=== PATIENT | male | born 1960 | race Caucasian/White ===

== ENCOUNTER 2018-08-11 09:42 | Emergency (ER) | payer SELFPAY ==
[2018-08-11] MEDS ORDERED: NS 1,000 ML IV ONE (10:31)
--- NOTE | 2018-08-11 10:31 | EDPHY ---
H & P Stated Complaint: High HR Time Seen by Provider: 08/11/18 10:31 HPI/ROS: CHIEF COMPLAINT: Palpitations HISTORY OF PRESENT ILLNESS: The patient presents the ED after he developed palpitations earlier today. The patient does have a history of chronic anxiety and takes lorazepam and atenolol for this condition. The patient was checking his blood pressure today when he noted an irregular heart rate. He was unable to actually count his heart rate secondary to the speeding irregularity. This prompted his visit to the emergency department. The patient denies any fever, cough or congestion. He denies pleuritic chest pain. He denies any asymmetric calf pain or swelling. The patient denies significant alcohol consumption. The patient denies acute complaints currently. REVIEW OF SYSTEMS: A comprehensive 10 point review of systems is otherwise negative aside from elements mentioned in the history of present illness. Source: Patient - Personal History Current Tetanus/Diphtheria Vaccine: Yes - Medical/Surgical History Hx Asthma: No Hx Chronic Respiratory Disease: No Hx Diabetes: No Hx Cardiac Disease: Yes Hx Renal Disease: No Hx Cirrhosis: No Hx Alcoholism: No Other PMH: HTN, anxiety - Social History Smoking Status: Never smoked - Physical Exam Exam: General Appearance: Alert, no distress Eyes: Pupils equal and round no pallor or injection ENT, Mouth: Mucous membranes moist Respiratory: There are no retractions, lungs are clear to auscultation Cardiovascular: Regular rate and rhythm Gastrointestinal: Abdomen is soft and nontender, no masses, bowel sounds normal Neurological: A&O, normal motor function, normal sensory exam, normal cranial nerves Skin: Warm and dry, no rashes Musculoskeletal: Neck is supple nontender Extremities: symmetrical, full range of motion Constitutional: Initial Vital Signs Temperature (C) 36.7 C 08/11/18 10:10 Heart Rate 56 L 08/11/18 10:10 Respiratory Rate 16 08/11/18 10:10 Blood Pressure 93/78 L 08/11/18 10:10 O2 Sat (%) 97 08/11/18 10:10 O2 Delivery Mode Room Air Allergies/Adverse Reactions: Opioids - Morphine Analogues Allergy (Verified 08/11/18 10:15) Home Medications: Medication Instructions Recorded Atenolol 08/11/18 LORAZEPAM 08/11/18 Medical Decision Making - Diagnostics EKG Interpretation: EKG: Complete interpretation has been separately recorded in the [employer] archive. Summary impression: Atrial fibrillation, rate 146, nonspecific ST T wave changes noted. Imaging Results: Imaging Impressions Chest X-Ray 08/11/18 10:31 Impression: Clear lungs. Negative portable chest. ED Course/Re-evaluation: The patient presented to the ED with atrial fibrillation with rapid ventricular response which resolved spontaneously after his IV catheter was placed. The patient is now entirely asymptomatic. The patient's workup is unrevealing aside from a slightly elevated D-dimer is 0.62. I did tell the patient had a low clinical suspicion for pulmonary embolism as he is now completely asymptomatic now that he is converted. The patient was offered a CT scan of the chest however he is declined that study secondary to concerns about cost as the patient is currently uninsured. The patient will follow up with his regular primary care provider Dr. Choe. He is also given the number of our groutman to schedule a follow-up visit regarding his atrial fibrillation. The patient will be discharged home with instructions to return to the ED for any dyspnea, pleuritic chest pain, recurrent arrhythmia or other concerns. Differential Diagnosis: Differential diagnosis considered includes atrial fibrillation, dehydration, arrhythmia, metabolic abnormality, anxiety - Data Points Laboratory Results: Laboratory Results 08/11/18 10:29 08/11/18 10:29 08/11/18 08/11/18 08/11/18 10:34 10:29 10:29 WBC RBC Hgb Hct MCV MCH MCHC RDW Plt Count MPV Neut % (Auto) Lymph % (Auto) [place] % (Auto) Eos % (Auto) Baso % (Auto) Nucleat RBC Rel Count Absolute Neuts (auto) Absolute Lymphs (auto) Absolute Monos (auto) Absolute Eos (auto) Absolute Basos (auto) Absolute Nucleated RBC Immature Gran % Immature Gran # D-Dimer 0.62 ug/mLFEU H ug/mLFEU (0.00-0.50) Sodium 140 mEq/L mEq/L (135-145) Potassium 3.9 mEq/L mEq/L (3.3-5.0) Chloride 103 mEq/L mEq/L (97-110) Carbon Dioxide 29 mEq/l mEq/l (22-31) Anion Gap 8 mEq/L mEq/L (8-16) BUN 25 mg/dL H mg/dL (7-23) Creatinine 1.1 mg/dL mg/dL (0.7-1.3) Estimated GFR > 60 Glucose 114 mg/dL H mg/dL (70-100) Calcium 9.4 mg/dL mg/dL (8.5-10.4) POC Troponin I 0.01 ng/mL ng/mL (0.00-0.08) 08/11/18 10:29 WBC 5.60 10^3/uL 10^3/uL (3.80-9.50) RBC 5.48 10^6/uL 10^6/uL (4.40-6.38) Hgb 17.4 g/dL g/dL (13.7-17.5) Hct 48.9 % % (40.0-51.0) MCV 89.2 fL fL (81.5-99.8) MCH 31.8 pg pg (27.9-34.1) MCHC 35.6 g/dL g/dL (32.4-36.7) RDW 13.0 % % (11.5-15.2) Plt Count 185 10^3/uL 10^3/uL (150-400) MPV 10.4 fL fL (8.7-11.7) Neut % (Auto) 53.3 % % (39.3-74.2) Lymph % (Auto) 31.3 % % (15.0-45.0) [place] % (Auto) 11.1 % % (4.5-13.0) Eos % (Auto) 3.2 % % (0.6-7.6) Baso % (Auto) 0.9 % % (0.3-1.7) Nucleat RBC Rel Count 0.0 % % (0.0-0.2) Absolute Neuts (auto) 2.99 10^3/uL 10^3/uL (1.70-6.50) Absolute Lymphs (auto) 1.75 10^3/uL 10^3/uL (1.00-3.00) Absolute Monos (auto) 0.62 10^3/uL 10^3/uL (0.30-0.80) Absolute Eos (auto) 0.18 10^3/uL 10^3/uL (0.03-0.40) Absolute Basos (auto) 0.05 10^3/uL 10^3/uL (0.02-0.10) Absolute Nucleated RBC 0.00 10^3/uL 10^3/uL (0-0.01) Immature Gran % 0.2 % % (0.0-1.1) Immature Gran # 0.01 10^3/uL 10^3/uL (0.00-0.10) D-Dimer Sodium Potassium Chloride Carbon Dioxide Anion Gap BUN Creatinine Estimated GFR Glucose Calcium POC Troponin I Medications Given: Discontinued Medications Sodium Chloride (Ns) 1,000 mls @ 0 mls/hr IV EDNOW ONE; Wide Open PRN Reason: Protocol Stop: 08/11/18 10:32 Last Admin: 08/11/18 10:52 Dose: 1,000 mls Point of Care Test Results: Chemistry 08/11/18 10:34 POC Troponin I 0.01 ng/mL ng/mL (0.00-0.08) Departure - Departure Disposition: Home, Routine, Self-Care Clinical Impression: Atrial fibrillation Condition: Good Instructions: A-fib (Atrial Fibrillation) (ED) Additional Instructions: 1. Please schedule a follow-up appointment with the groutman you have been referred to for further workup of your new onset atrial fibrillation. 2. You have been offered CT scan of the chest in decline for evaluation of possible blood clot. Please return to the ED for the development of any sharp inspiratory chest pain, shortness of breath or other concerns. 3. Please schedule a follow-up appointment with Dr. Choe. 4. Please try and increase your fluid intake as mild dehydration may have contributed to your symptoms today. Referrals: Carlyle Choe MD [Primary Care Provider] - As per Instructions Abisai Kinsye MD [Medical Doctor] - As per Instructions
[2018-08-11 10:44] LABS: PLATELET COUNT 185 10^3/uL (150-400)
[2018-08-11] MEDS ORDERED: IOPAMIDOL (ISOVUE 370) 100 ML BTL IV ONE (11:59)
[2018-08-11 12:25] VITALS: BP 111/68
--- NOTE | 2018-08-11 13:44 | CPEKG ---
Test Reason : OPEN Blood Pressure : / mmHG Vent. Rate : 146 BPM Atrial Rate : 161 BPM P-R Int : 050 ms QRS Dur : 087 ms QT Int : 294 ms P-R-T Axes : 000 026 046 degrees QTc Int : 459 ms Atrial fibrillation Minimal ST depression, anterolateral leads Confirmed by Kenn Quiros ([id number]) on 08/11/2018 1:43:15 PM Referred By: Confirmed By:Kenn Quiros
--- NOTE | 2018-08-11 13:44 | CPEKG ---
Test Reason : OPEN Blood Pressure : / mmHG Vent. Rate : 058 BPM Atrial Rate : 059 BPM P-R Int : 163 ms QRS Dur : 090 ms QT Int : 401 ms P-R-T Axes : 021 027 040 degrees QTc Int : 394 ms Sinus rhythm Confirmed by Kenn Quiros ([id number]) on 08/11/2018 1:43:19 PM Referred By: Confirmed By:Kenn Quiros
== END 2018-08-11 12:24 | disposition home or self-care (01) ==
DX: I48.91 Unspecified atrial fibrillation (principal); E86.9 Volume depletion, unspecified; F41.9 Anxiety disorder, unspecified; I10 Essential (primary) hypertension
CPT/HCPCS: 84484-PO; Q9967

== ENCOUNTER 2018-08-25 02:13 | Observation (INO) | payer SELFPAY ==
--- NOTE | 2018-08-25 02:19 | EDPHY ---
H & P Stated Complaint: Afib and left arm numbness Time Seen by Provider: 08/25/18 02:19 HPI/ROS: HPI CHIEF COMPLAINT: Left arm tightness, possible AFib HISTORY OF PRESENT ILLNESS: A 58-year-old male, history of hypertension, presents emergency room stating that he woke up this evening and took his pulse knows that was rather fast. Irregular. Also developed some left-sided tightness in his arm and possibly in his chest. No pleuritic pain. Patient states that he was seen earlier in the month for possible AFib but converted. He did follow back up with his primary care doctor he is taking aspirin daily. Denies any cardiac history. Past Medical History: Hypertension Past Surgical History: Femur fracture. Social History: Denies drugs alcohol tobacco. Family History: Noncontributory ROS REVIEW OF SYSTEMS: 10 Systems were reviewed and negative with the exception of the elements mentioned in the history of present illness. Exam Constitutional nontoxic triage nursing summary reviewed, vital signs reviewed, awake/alert. Heart rate noted be elevated Eyes normal conjunctivae and sclera, EOMI, PERRLA. HENT normal inspection, atraumatic, moist mucus membranes, no epistaxis, neck supple/ no meningismus, no raccoon eyes. Respiratory clear to auscultation bilaterally, normal breath sounds, no respiratory distress, no wheezing. Cardiovascular irregular, irregular rhythm, tachycardic no murmur, no edema, distal pulses normal. Gastrointestinal soft, non-tender, no rebound, no guarding, normal bowel sounds, no distension, no pulsatile mass. Genitourinary no CVA tenderness. Musculoskeletal no midline vertebral tenderness, full range of motion, no calf swelling, no tenderness of extremities, no meningismus, good pulses, neurovascularly intact. Skin pink, warm, & dry, no rash, skin atraumatic. Neurologic awake, alert and oriented x 3, AAOx3, moves all 4 extremities equally, motor intact, sensory intact, CN II-XII intact, normal cerebellar, normal vision, normal speech. Psychiatric normal mood/affect. Heme/Lymph/Immune no lymphadenopathy. Differential diagnosis includes but is not limited to: ACS, atypical chest pain , pneumothorax, pneumonia, pulmonary embolism, aortic dissection, congestive heart failure, tumor, musculoskeletal pain, esophageal pain, GERD, peptic ulcer disease, pancreatitis Medical Decision Making: IV establishment with IV fluid bolus, full media monitor, EKG, troponin, electrolytes, rule out acute coronary syndrome. Re-evaluation: EKG interpretation by me on record in [employer] system. Impression time of EKG 2:29 a.m., AFib with RVR rate of 126 without any signs of acute ischemia. However slight depression specifically in lead V4 V5 V6. No ST elevation. EKG interpretation by me on record in [employer] system. Impression this is a repeat EKG status post 10 mg IV diltiazem. Time of EKG 3:23 a.m., AFib rate of 102 no acute ischemic change. Chest x-ray reviewed negative for acute cardiopulmonary disease. Given the patient's ongoing AFib, and earlier left-sided chest and arm discomfort patient not on anticoagulation to be admitted the hospital for further evaluation of this AFib with RVR with chest pressure. Source: Patient - Personal History Current Tetanus/Diphtheria Vaccine: Yes Current Tetanus Diphtheria and Acellular Pertussis (TDAP): Yes - Medical/Surgical History Hx Asthma: No Hx Chronic Respiratory Disease: No Hx Diabetes: No Hx Cardiac Disease: Yes Hx Renal Disease: No Hx Cirrhosis: No Hx Alcoholism: No Other PMH: HTN, anxiety, afib - Social History Smoking Status: Never smoked Constitutional: Initial Vital Signs Temperature (C) 36.3 C 08/25/18 02:14 Heart Rate 119 H 08/25/18 02:14 Respiratory Rate 18 08/25/18 02:14 Blood Pressure 123/97 H 08/25/18 02:14 O2 Sat (%) 96 08/25/18 02:14 O2 Delivery Mode Room Air Allergies/Adverse Reactions: Opioids - Morphine Analogues Allergy (Verified 08/25/18 02:17) Home Medications: Medication Instructions Recorded Atenolol 08/11/18 LORAZEPAM 08/11/18 Medical Decision Making - Diagnostics Imaging Results: Imaging Impressions Chest X-Ray 08/25/18 02:27 Impression: 1. No acute pulmonary disease. 2. No focal pneumonia. - Data Points Laboratory Results: Laboratory Results 08/25/18 02:30 08/25/18 02:30 08/25/18 08/25/18 08/25/18 02:36 02:30 02:30 WBC RBC Hgb Hct MCV MCH MCHC RDW Plt Count MPV Neut % (Auto) Lymph % (Auto) [place] % (Auto) Eos % (Auto) Baso % (Auto) Nucleat RBC Rel Count Absolute Neuts (auto) Absolute Lymphs (auto) Absolute Monos (auto) Absolute Eos (auto) Absolute Basos (auto) Absolute Nucleated RBC Immature Gran % Immature Gran # PT Pending INR Pending APTT Pending Sodium 138 mEq/L mEq/L (135-145) Potassium 4.0 mEq/L mEq/L (3.3-5.0) Chloride 102 mEq/L mEq/L (97-110) Carbon Dioxide 26 mEq/l mEq/l (22-31) Anion Gap 10 mEq/L mEq/L (6-14) BUN 31 mg/dL H mg/dL (7-23) Creatinine 1.1 mg/dL mg/dL (0.7-1.3) Estimated GFR > 60 Glucose 100 mg/dL mg/dL (70-100) Calcium 9.4 mg/dL mg/dL (8.5-10.4) Magnesium 2.1 mg/dL mg/dL (1.6-2.3) Total Bilirubin 0.6 mg/dL mg/dL (0.1-1.4) Conjugated Bilirubin 0.2 mg/dL mg/dL (0.0-0.5) Unconjugated Bilirubin 0.4 mg/dL mg/dL (0.0-1.1) AST 28 IU/L IU/L (17-59) ALT 27 IU/L IU/L (21-72) Alkaline Phosphatase 56 IU/L IU/L (38-126) POC Troponin I 0.00 ng/mL ng/mL (0.00-0.08) NT-Pro-B Natriuret Pep 164 pg/mL H pg/mL (0-125) Total Protein 6.8 g/dL g/dL (6.3-8.2) Albumin 4.2 g/dL g/dL (3.5-5.0) 08/25/18 02:30 WBC 6.31 10^3/uL 10^3/uL (3.80-9.50) RBC 5.06 10^6/uL 10^6/uL (4.40-6.38) Hgb 15.7 g/dL g/dL (13.7-17.5) Hct 45.6 % % (40.0-51.0) MCV 90.1 fL fL (81.5-99.8) MCH 31.0 pg pg (27.9-34.1) MCHC 34.4 g/dL g/dL (32.4-36.7) RDW 13.0 % % (11.5-15.2) Plt Count 150 10^3/uL 10^3/uL (150-400) MPV 10.9 fL fL (8.7-11.7) Neut % (Auto) 53.3 % % (39.3-74.2) Lymph % (Auto) 32.3 % % (15.0-45.0) [place] % (Auto) 10.3 % % (4.5-13.0) Eos % (Auto) 3.2 % % (0.6-7.6) Baso % (Auto) 0.6 % % (0.3-1.7) Nucleat RBC Rel Count 0.0 % % (0.0-0.2) Absolute Neuts (auto) 3.36 10^3/uL 10^3/uL (1.70-6.50) Absolute Lymphs (auto) 2.04 10^3/uL 10^3/uL (1.00-3.00) Absolute Monos (auto) 0.65 10^3/uL 10^3/uL (0.30-0.80) Absolute Eos (auto) 0.20 10^3/uL 10^3/uL (0.03-0.40) Absolute Basos (auto) 0.04 10^3/uL 10^3/uL (0.02-0.10) Absolute Nucleated RBC 0.00 10^3/uL 10^3/uL (0-0.01) Immature Gran % 0.3 % % (0.0-1.1) Immature Gran # 0.02 10^3/uL 10^3/uL (0.00-0.10) PT INR APTT Sodium Potassium Chloride Carbon Dioxide Anion Gap BUN Creatinine Estimated GFR Glucose Calcium Magnesium Total Bilirubin Conjugated Bilirubin Unconjugated Bilirubin AST ALT Alkaline Phosphatase POC Troponin I NT-Pro-B Natriuret Pep Total Protein Albumin Medications Given: Discontinued Medications Diltiazem HCl (Cardizem 25 Mg/5 Ml Vial) 10 mg IVP EDNOW ONE Stop: 08/25/18 02:31 Last Admin: 08/25/18 02:31 Dose: 10 mg Sodium Chloride (Ns) 1,000 mls @ 0 mls/hr IV EDNOW ONE; Wide Open PRN Reason: Protocol Stop: 08/25/18 02:28 Last Admin: 08/25/18 02:30 Dose: 1,000 mls Point of Care Test Results: Chemistry 08/25/18 02:36 POC Troponin I 0.00 ng/mL ng/mL (0.00-0.08) Departure - Departure Disposition: [facility] Inpatient Acute Clinical Impression: Chest pressure, Atrial fibrillation Condition: Fair Referrals: Carlyle Choe MD [Primary Care Provider] - As per Instructions
[2018-08-25] MEDS ORDERED: NS 1,000 ML IV ONE (02:27)
[2018-08-25] MEDS ORDERED: DILTIAZEM 25 MG/5 ML VIAL IVP ONE (02:30)
[2018-08-25 02:44] LABS: PLATELET COUNT 150 10^3/uL (150-400)
[2018-08-25] MEDS ORDERED: DILTIAZEM 125 MG in D5W 125 ML IV ONE (03:29)
[2018-08-25 03:34] LABS: INR 0.98 (0.83-1.16); PROTIME(PATIENT) 13.2 SEC (12.0-15.0)
[2018-08-25] MEDS ORDERED: ACETAMINOPHEN 325 MG TAB PO PRN (03:41)
[2018-08-25] MEDS ORDERED: ONDANSETRON 4 MG/2 ML VIAL IVP PRN (03:41)
[2018-08-25] MEDS ORDERED: ONDANSETRON DISINTEGRATING 4 MG TAB PO PRN (03:41)
[2018-08-25] MEDS ORDERED: DILTIAZEM 125 MG in D5W 125 ML IV SCH (03:45)
--- NOTE | 2018-08-25 04:13 | PDGENHP ---
History and Physical - Chief Complaint Palpitations - History of Present Illness 58 yo M w/ hx of HTN and anxiety presents with palpitations. The patient got up to go to the bathroom tonight and noted palpitations. He could feel clear irregularity in his heart rate. He check his pulse and it was high so he came to the ED. Upon arrival he was noted to be in AF w/ RVR with HR's in the 130's. He was placed on a diltiazem drip and he currently remains in AF with HR's in the 90-120 range. He denies symptoms aside from anxiety, which is a chronic problem for him. Of note, he came to the ED on August 11 with similar symptoms. He was found to have atrial fibrillation but converted back to NSR quickly and was discharged home for outpatient work-up. A 24 Holter monitor on 08/13 revealed only occasional PVCs. He denies history of CHF, vascular disease, DM, or stroke. Case discussed with Dr. Marion; records reviewed in EMR. History Information - Allergies/Home Medication List Allergies/Adverse Reactions: Opioids - Morphine Analogues Allergy (Verified 08/25/18 02:17) Home Medications: Atenolol 08/11/18 [Last Taken Unknown] LORAZEPAM 08/11/18 [Last Taken Unknown] I have personally reviewed and updated: family history, medical history - Past Medical History hypertension Additional medical history: Anxiety - Surgical History Reports: no pertinent surgical hx - Family History Positive for: cancer - Social History Smoking Status: Never smoked Review of Systems Review of Systems: ROS: 10pt was reviewed & negative except for what was stated in HPI & below Physical Exam Physical Exam: Temp Pulse Resp BP Pulse Ox 36.5 C 88 16 100/83 H 94 08/25/18 03:53 08/25/18 03:53 08/25/18 03:53 08/25/18 03:53 08/25/18 03:53 Constitutional: appears nourished, not in pain Eyes: PERRL, EOMI Ears, Nose, Mouth, Throat: moist mucous membranes, no oral mucosal ulcers Cardiovascular: irregularly irregular, tachycardia Respiratory: no respiratory distress, clear to auscultation Gastrointestinal: normoactive bowel sounds, soft, non-tender abdomen Skin: warm, normal color Musculoskeletal: full muscle strength, no muscle tenderness Neurologic: AAOx3, CN II-XII Intact Psychiatric: interacting appropriately, not anxious Lab Data & Imaging Review 08/25/18 02:30 08/25/18 02:30 WBC 6.31 10^3/uL (3.80-9.50) 08/25/18 02:30 RBC 5.06 10^6/uL (4.40-6.38) 08/25/18 02:30 Hgb 15.7 g/dL (13.7-17.5) 08/25/18 02:30 Hct 45.6 % (40.0-51.0) 08/25/18 02:30 MCV 90.1 fL (81.5-99.8) 08/25/18 02:30 MCH 31.0 pg (27.9-34.1) 08/25/18 02:30 MCHC 34.4 g/dL (32.4-36.7) 08/25/18 02:30 RDW 13.0 % (11.5-15.2) 08/25/18 02:30 Plt Count 150 10^3/uL (150-400) 08/25/18 02:30 MPV 10.9 fL (8.7-11.7) 08/25/18 02:30 Neut % (Auto) 53.3 % (39.3-74.2) 08/25/18 02:30 Lymph % (Auto) 32.3 % (15.0-45.0) 08/25/18 02:30 [place] % (Auto) 10.3 % (4.5-13.0) 08/25/18 02:30 Eos % (Auto) 3.2 % (0.6-7.6) 08/25/18 02:30 Baso % (Auto) 0.6 % (0.3-1.7) 08/25/18 02:30 Nucleat RBC Rel Count 0.0 % (0.0-0.2) 08/25/18 02:30 Absolute Neuts (auto) 3.36 10^3/uL (1.70-6.50) 08/25/18 02:30 Absolute Lymphs (auto) 2.04 10^3/uL (1.00-3.00) 08/25/18 02:30 Absolute Monos (auto) 0.65 10^3/uL (0.30-0.80) 08/25/18 02:30 Absolute Eos (auto) 0.20 10^3/uL (0.03-0.40) 08/25/18 02:30 Absolute Basos (auto) 0.04 10^3/uL (0.02-0.10) 08/25/18 02:30 Absolute Nucleated RBC 0.00 10^3/uL (0-0.01) 08/25/18 02:30 Immature Gran % 0.3 % (0.0-1.1) 08/25/18 02:30 Immature Gran # 0.02 10^3/uL (0.00-0.10) 08/25/18 02:30 PT 13.2 SEC (12.0-15.0) 08/25/18 02:30 INR 0.98 (0.83-1.16) 08/25/18 02:30 APTT 29.2 SEC (23.0-38.0) 08/25/18 02:30 Sodium 138 mEq/L (135-145) 08/25/18 02:30 Potassium 4.0 mEq/L (3.3-5.0) 08/25/18 02:30 Chloride 102 mEq/L (97-110) 08/25/18 02:30 Carbon Dioxide 26 mEq/l (22-31) 08/25/18 02:30 Anion Gap 10 mEq/L (6-14) 08/25/18 02:30 BUN 31 mg/dL (7-23) H 08/25/18 02:30 Creatinine 1.1 mg/dL (0.7-1.3) 08/25/18 02:30 Estimated GFR > 60 08/25/18 02:30 Glucose 100 mg/dL (70-100) 08/25/18 02:30 Calcium 9.4 mg/dL (8.5-10.4) 08/25/18 02:30 Magnesium 2.1 mg/dL (1.6-2.3) 08/25/18 02:30 Total Bilirubin 0.6 mg/dL (0.1-1.4) 08/25/18 02:30 Conjugated Bilirubin 0.2 mg/dL (0.0-0.5) 08/25/18 02:30 Unconjugated Bilirubin 0.4 mg/dL (0.0-1.1) 08/25/18 02:30 AST 28 IU/L (17-59) 08/25/18 02:30 ALT 27 IU/L (21-72) 08/25/18 02:30 Alkaline Phosphatase 56 IU/L (38-126) 08/25/18 02:30 POC Troponin I 0.00 ng/mL (0.00-0.08) 08/25/18 02:36 NT-Pro-B Natriuret Pep 164 pg/mL (0-125) H 08/25/18 02:30 Total Protein 6.8 g/dL (6.3-8.2) 08/25/18 02:30 Albumin 4.2 g/dL (3.5-5.0) 08/25/18 02:30 Imaging Review: Imaging Impressions Chest X-Ray 08/25/18 02:27 Impression: 1. No acute pulmonary disease. 2. No focal pneumonia. Visualized and Interpreted EKG results: Yes EKG Interpretation: Positive for: other (Atrial fibrillation) Assessment & Plan Assessment: 58 yo M w/ HTN and anxiety presents with palpitations and found to have atrial fibrillation. Plan: 1. AF w/ RVR - HR 130's on admission, now improved on diltiazem drip. Patient was also noted to be in atrial fibrillation on 08/11 during ED visit but converted to NSR and was discharged for outpatient work-up. [id number] score of only 1 for HTN. - Admit to PCU for observation - Continue diltiazem gtt overnight - Obtain TTE, check TSH - Will consult cardiology to consider next steps - Indicated for ASA prior to discharge noting low [id number] 2. HTN - On atenolol as outpatient 3. Anxiety - He has been trying to taper his lorazepam as of late. Diet - NPO pending cardiology evaluation Code - Full Ppx - LMWH Dispo - Admit under observation status
[2018-08-25] MEDS ORDERED: ENOXAPARIN 40 MG/0.4 ML SYR SC SCH (09:00)
--- NOTE | 2018-08-25 10:29 | PDCARCONS ---
Cardiology Consult Reason for Consult: Newly noted atrial fibrillation Chief Complaint: Palpitations Requesting Physician: Hospitalist Team History of Present Illness: Patient is a 58 y/o male with history of HTN (currently on beta blockers in the outpatient setting), and moderate anxiety, but no HLP, CAD, or DM, who presented to [facility] with complaints of palpitations. Patient noted accelerated heart rates as well as irregularity to heart rhythm on the night prior to admission. Given these findings, he opted to proceed to the ER for an evaluation. Telemetry in the ER with heart rates to 130 bpm and clear irregularity consistent with atrial fibrillation. Diltiazem was started in the ER, and the patient was transferred to the tele floor. In early August, the patient had similar symptoms, and in the ER was noted to have atrial fibrillation at that time. Spontaneous conversion back to normal sinus rhythm was appreciated. Outpatient testing (24 hour holter) without further arrhythmias noted. Patient feels that this cycle has been going on for some time. There is a moderate degree of anxiety (for which he does take lorazepam). Snoring is noted from time to time (uncertain on the degree, but sleep is note terrific). No cardiovascular complaints of chest pains or pressure. No PND or orthopnea. Compliance on PCP prescribed atenolol has been good (patient takes this therapy at 20:00 nightly after an alarm to remind him). Exercise has increased somewhat after a relatively quiescent period without exercise, and has been tolerated. PCP with thyroid panel recently, but he had not heart back with the results. Remainder of the 12 point review of systems was unremarkable. History Information - Allergies/Home Medication List Allergies/Adverse Reactions: Opioids - Morphine Analogues Allergy (Verified 08/25/18 02:17) Home Medications: Atenolol [Tenormin 50 mg (*)] 50 mg PO DAILY 08/11/18 [Last Taken 08/24/18] LORazepam [Ativan (*)] 1 mg PO TID PRN 08/11/18 [Last Taken Unknown] I have personally reviewed and updated: family history, medical history, social history, surgical history Past Medical History: - Past Medical History hypertension - Surgical History Reports: no pertinent surgical hx - Family History Positive for: CAD - Social History Smoking Status: Never smoked Alcohol Use: Rarely Drug Use: None Cardiac History - Cardiac History Cardiac Risk Factors: male Timing/Duration: Weeks Severity: mild Severity Scale: 4 Location: substernal Activities at Onset: emotional stress Modifying Factors: improves with: breathing, rest Associated Symptoms: denies symptoms Age in Years: < 65 Sex: Male Congestive Heart Failure History: No Hypertension History: Yes Stroke/TIA/Thromboembolism History: No Vascular Disease History: No Diabetes Mellitus: No [id number] Score: 1 Physical Exam Physical Exam: Temp Pulse Resp BP Pulse Ox 36.8 C 108 H 15 129/93 H 92 08/25/18 08:00 08/25/18 08:00 08/25/18 08:00 08/25/18 08:00 08/25/18 08:00 Constitutional: no apparent distress Eyes: PERRL Ears, Nose, Mouth, Throat: moist mucous membranes, hearing normal, ears appear normal Cardiovascular: irregularly irregular, pulses symmetric bilaterally, No JVD, No edema Peripheral Pulses: 2+: dorsalis-pedis (R), dorsalis-pedis (L) Respiratory: no respiratory distress, no rales or rhonchi, clear to auscultation Gastrointestinal: normoactive bowel sounds Skin: warm, normal color Musculoskeletal: full muscle strength, normal joint ROM Neurologic: AAOx3, sensation intact bilaterally, CN II-XII Intact Psychiatric: interacting appropriately, anxious Lab and Imaging 08/25/18 02:30 08/25/18 02:30 WBC 6.31 10^3/uL (3.80-9.50) 08/25/18 02:30 RBC 5.06 10^6/uL (4.40-6.38) 08/25/18 02:30 Hgb 15.7 g/dL (13.7-17.5) 08/25/18 02:30 Hct 45.6 % (40.0-51.0) 08/25/18 02:30 MCV 90.1 fL (81.5-99.8) 08/25/18 02:30 MCH 31.0 pg (27.9-34.1) 08/25/18 02:30 MCHC 34.4 g/dL (32.4-36.7) 08/25/18 02:30 RDW 13.0 % (11.5-15.2) 08/25/18 02:30 Plt Count 150 10^3/uL (150-400) 08/25/18 02:30 MPV 10.9 fL (8.7-11.7) 08/25/18 02:30 Neut % (Auto) 53.3 % (39.3-74.2) 08/25/18 02:30 Lymph % (Auto) 32.3 % (15.0-45.0) 08/25/18 02:30 [place] % (Auto) 10.3 % (4.5-13.0) 08/25/18 02:30 Eos % (Auto) 3.2 % (0.6-7.6) 08/25/18 02:30 Baso % (Auto) 0.6 % (0.3-1.7) 08/25/18 02:30 Nucleat RBC Rel Count 0.0 % (0.0-0.2) 08/25/18 02:30 Absolute Neuts (auto) 3.36 10^3/uL (1.70-6.50) 08/25/18 02:30 Absolute Lymphs (auto) 2.04 10^3/uL (1.00-3.00) 08/25/18 02:30 Absolute Monos (auto) 0.65 10^3/uL (0.30-0.80) 08/25/18 02:30 Absolute Eos (auto) 0.20 10^3/uL (0.03-0.40) 08/25/18 02:30 Absolute Basos (auto) 0.04 10^3/uL (0.02-0.10) 08/25/18 02:30 Absolute Nucleated RBC 0.00 10^3/uL (0-0.01) 08/25/18 02:30 Immature Gran % 0.3 % (0.0-1.1) 08/25/18 02:30 Immature Gran # 0.02 10^3/uL (0.00-0.10) 08/25/18 02:30 PT 13.2 SEC (12.0-15.0) 08/25/18 02:30 INR 0.98 (0.83-1.16) 08/25/18 02:30 APTT 29.2 SEC (23.0-38.0) 08/25/18 02:30 Sodium 138 mEq/L (135-145) 08/25/18 02:30 Potassium 4.0 mEq/L (3.3-5.0) 08/25/18 02:30 Chloride 102 mEq/L (97-110) 08/25/18 02:30 Carbon Dioxide 26 mEq/l (22-31) 08/25/18 02:30 Anion Gap 10 mEq/L (6-14) 08/25/18 02:30 BUN 31 mg/dL (7-23) H 08/25/18 02:30 Creatinine 1.1 mg/dL (0.7-1.3) 08/25/18 02:30 Estimated GFR > 60 08/25/18 02:30 Glucose 100 mg/dL (70-100) 08/25/18 02:30 Calcium 9.4 mg/dL (8.5-10.4) 08/25/18 02:30 Magnesium 2.1 mg/dL (1.6-2.3) 08/25/18 02:30 Total Bilirubin 0.6 mg/dL (0.1-1.4) 08/25/18 02:30 Conjugated Bilirubin 0.2 mg/dL (0.0-0.5) 08/25/18 02:30 Unconjugated Bilirubin 0.4 mg/dL (0.0-1.1) 08/25/18 02:30 AST 28 IU/L (17-59) 08/25/18 02:30 ALT 27 IU/L (21-72) 08/25/18 02:30 Alkaline Phosphatase 56 IU/L (38-126) 08/25/18 02:30 POC Troponin I 0.00 ng/mL (0.00-0.08) 08/25/18 02:36 NT-Pro-B Natriuret Pep 164 pg/mL (0-125) H 08/25/18 02:30 Total Protein 6.8 g/dL (6.3-8.2) 08/25/18 02:30 Albumin 4.2 g/dL (3.5-5.0) 08/25/18 02:30 TSH 6.130 uIU/mL (0.465-4.680) H 08/25/18 02:30 Visualized and Interpreted Chest x-ray results: Yes Chest X-ray Interpretation: no infiltrate, normal Visualized and Interpreted EKG results: Yes EKG Interpretation: Positive for: other (atrial fibrillation) Telemetry: Ongoing atrial fibrillation Echocardiogram: Pending... A/P Assessment: Patient is a 58 y/o male with history of HTN (not too elevated from the reports of the patient, with outpatient pressures of 130 mm Hg systolic being noted), no CAD, HLP, or DM (diagnosed at present), and longstanding issues with anxiety , who presents to [facility] ER with complaints of fast, irregular heart rates. In the early part of August 2018, the patient had an episode of atrial fibrillation. Outpatient follow up with PCP led to the addition of beta blockers as well as holter monitor (24 hour), without pathology noted. In the hospital today, anxiety is playing some part in the arrhythmia noted, but I also would questions thyroid dysfunction (TSH >6) and FRANCISCA (the patient reports "snoring" some, with long history of "poor sleep"). Long discussion about options from (A) ASA therapy ([id number] score is 1), and continued use of beta blockers versus calcium channel blockers. With pursuit of option A, the patient needs thyroid supplementation and should also have a formal sleep study. If these issues are contributing to the atrial fibrillation, they should be addressed. Option (B). EDA with possible cardioversion. The upside of this option would be to acutely address the arrhythmia, but the downside is if the patient's issues are related to FRANCISCA and thyroid, the arrhythmia will return. Would change from beta blockers to calcium channel blockers given the response that the patient has noted while in patient. The patient's anxiety is clearly playing a part in this process as well.. Plan: (1) ASA (2) Will research cost on Eliquis, but we can get the patient a one month supply (3) Diltiazem (60 mg twice per day) over Atenolol (4) Formal sleep study is needed (5) Synthroid consideration (6) Stress management Outpatient follow up with cardiology in 2 weeks is recommended Risks and benefits of Eliquis were discussed with the patient.
--- NOTE | 2018-08-25 11:01 | ECHO ---
[email or web address] [address] Main: [phone] Fax: Transthoracic Echocardiogram Name: AMPARO ZABALA MR#: [id number] Study Date: 08/25/2018 Study Time: 08:45 AM Date of : 1960 Age: 58 year(s) Height: 195.6 cm (77 in.) Weight: 96.16 kg (212 lb.) BSA: 2.29 m2 Gender: Male Examination: Echo Indication: New AF w/ RVR Image Quality: Adequate Contrast: Requested by: Fer Edmond BP: 129 mmHg/93 mmHg Heart Rate: Rhythm: Indication: New AF w/ RVR Procedure Staff Call Center Agent: Josette Kirk RDCS Reading Physician: Wild La MD Requesting Provider: Conclusions: Normal size left ventricle. EF is 61 %. No regional wall motion abnormality. Normal appearing valvular structures. Mild mitral valve regurgitation is present. Mild aortic valve regurgitation is present. Mild tricuspid regurgitation is present. Right ventricular systolic pressure measures 21mmHg. Dilated aortic root measuring 4.6 cm. Dilated ascending aorta measuring 4.3 cm. No pericardial effusion. No prior study for comparison. Measurements: Chambers Valvular Assessment AV/MV Valvular Assessment TV/PV Normal Normal Normal Name Value Range Name Value Range Name Value Range Ao Elif (2D): 4.6 cm (1.4 cm-2.6 AV Vmax: 1.03 m/s (1 m/s-1.7 TR Vmax: 1.98 mm/s ( - ) cm) m/s) TR PGmax: 16 mmHg ( - ) IVSd (2D): 1.1 cm (0.6 cm-1.1 AV maxP mmHg ( - ) syst. PAP: 21 mmHg ( - ) cm) AV meanP mmHg ( - ) PV Vmax: 0.76 m/s (0.6 m/s-0.9 LVDd (2D): 5.0 cm (4.2 cm-5.9 LVOT Vmax: 1.00 m/s (0.7 m/s-1.1 m/s) cm) m/s) PV PGmax: 2 mmHg ( - ) LVDs (2D): 3.6 cm (2.1 cm-4 SADIA (Vmax): 4.8 cm2 ( - ) cm) SADIA (VTI): 5.1 cm ( - ) LVPWd (2D): 1.0 cm (0.6 cm-1 MV E Vmax: 0.74 m/s ( - ) cm) MV PHT: 0.073 s ( - ) LVOTd 2.5 cm 2.5 cm mm MVA (PHT): 3.0 s ( - ) LVEF (BP): 61 % (>=55 %) RVDd(2D): 4.1 cm (1.9 cm-3.8 cmmm) Patient: AMPARO ZABALA Study Date: 08/25/2018 Page 1 of 2 08:45 AM Continued Measurements: Chambers Valvular Assessment AV/MV Valvular Assessment TV/PV Name Value Name Value Name Value LADs: 3.9 cm MV DecTime: 254 m/s CVP (est.): 5 mmHg LADs Lon.5 cm LA Area: 20.5 cm2 LA Volume: 60 ml LA Volume Index: 26.2 ml/m2 RA Area: 22.1 cm2 Additional Vessels Name Value Ao Ascendin.3 cm Inferior Vena Cava: 1.7 cm Findings: Left Ventricle: Normal size left ventricle. No LV hypertrophy. Normal global systolic LV function. EF is 61 %. No regional wall motion abnormality. Unable to assess diastolic dysfunction. Right Ventricle: Normal size right ventricle. Normal RV function. Left Atrium: The left atrium is normal in size. Right Atrium: The right atrium is normal in size. Mitral Valve: The mitral valve is normal in appearance. Mild mitral valve regurgitation is present.There is bileaflet mitral valve prolapse. There is mild bileaflet mitral valve prolapse. Aortic Valve: The aortic valve is tri-leaflet. Mild aortic valve regurgitation is present. No aortic valve stenosis is present. Tricuspid Valve: The tricuspid valve is normal in appearance and function. Mild tricuspid regurgitation is present. The pulmonary artery pressure is normal. Right ventricular systolic pressure measures 21mmHg. Pulmonic Valve: The pulmonic valve is normal in appearance and function. There is no pulmonic regurgitation seen. Aorta: The aorta is normal. Dilated aortic root measuring 4.6 cm. Dilated ascending aorta measuring 4.3 cm. IVC: The IVC is normal sized. Pericardium: No pericardial effusion. No pleural effusion. (No Signature Object) Patient: AMPARO ZABALA Study Date: 08/25/2018 Page 2 of 2 08:45 AM [id number]
--- NOTE | 2018-08-25 12:22 | ASMTCMCOM ---
CM Note CM Note Notes: 08/25/2018 Case Management Note Discussed pt during rounds this morning. Pt admitted for afib with a history of anxiety. Financial couseling met w/pt this morning. Pt is uninsured and overincome for Medicaid. Provided phone numbers for [facility] and [facility]. Provided website for [employer] exchange for pt to research insurance options. There are no therapy evals ordered at this time. No further case mangement d/c needs identified. Case Management d/c poc: independent with follow up as directed. Case Management available if needs change. Date Signed: 08/25/2018 12:21 PM Electronically Signed By:Yohana Canales RN
[2018-08-25] MEDS ORDERED: DILTIAZEM 60 MG TAB PO SCH (12:30)
[2018-08-25] MEDS ORDERED: LORazepam 1 MG TAB PO PRN (17:13)
--- NOTE | 2018-08-25 18:07 | GDS ---
CONSULTATIONS: Dr. Duque with Cardiology. HISTORY OF PRESENT ILLNESS: This 58-year-old male with hypertension, anxiety, presents to [facility] with palpitations the night prior to admission. Telemetry in the ER showed heart rates 130s. Thus, Diltiazem drip was started. In early August, he had similar symptoms but spontaneously converted to normal sinus rhythm. He had an outpatient 24-hour Holter monitor without any further arrhythmias noted. Denies chest pain or PND or orthopnea. He has been taking Ativan for his anxiety. HOSPITAL COURSE BY PROBLEM: 1. Atrial fibrillation with RVR: converted to NSR on Diltiazem. Now bradycardic in 50s. [place] dose for him is 60mg ER, but there is no formulation for 24hr-release, thus home on 30mg BID. Advised him if HR not controlled, he can take an additional dose and to call [facility]. Eliquis started in anticipation of possible cardioversion needed in next few weeks. He will follow up with Dr. Duque in 2 weeks to re-evaluate. TSH is elevated to 6 with normal T3, T4. At this point, he is not symptomatic with symptoms typical of hypothyroidism. He can follow up with his PCP. 2. Possible FRANCISCA: Recommend a formal sleep study outpatient. 3. Anxiety: He is being weaned off Ativan per his PCP. I discussed at length with patient on considering SSRI for better long-acting control. He would like to speak with Dr. Choe. DISPOSITION: Patient is stable for discharge. NEW MEDICATIONS: 1. Diltiazem 30mg BID 2. Eliquis 5 mg b.i.d. FOLLOWUP PLAN: 1. Dr. Duque in [address] Choe. 3. Outpatient sleep study. 4. Consider SSRI for anxiety. PHYSICAL EXAM: VITAL SIGNS: Temperature 36.8, blood pressure 110/76, heart rate is in the 1-teens, respirations 16, 94% on room air. GENERAL: He is anxious, in no acute distress. HEENT: PERRLA. Moist mucous membranes. CV: Tachy, irregularly irregular. LUNGS: Clear. ABDOMEN: Soft, nontender, nondistended. Positive bowel sounds. : No [place]. MUSCULOSKELETAL: 5/5 upper and lower extremity strength. NEURO: 2 through 12 intact. PSYCH: Alert and oriented x3 but anxious. TIME SPENT ON DISCHARGE: Greater than 45 minutes, discussing case with Dr. Duque and bedside with patient explaining medications and followup plan. /[id number]/MODL MTDD
[2018-08-25 18:37] VITALS: BP 106/67
--- NOTE | 2018-08-28 23:58 | CPEKG ---
Test Reason : OPEN Blood Pressure : / mmHG Vent. Rate : 126 BPM Atrial Rate : 000 BPM P-R Int : 124 ms QRS Dur : 088 ms QT Int : 332 ms P-R-T Axes : 000 044 052 degrees QTc Int : 481 ms Atrial fibrillation Minimal ST depression, diffuse leads Borderline prolonged QT interval Confirmed by Justin Gavin ([id number]) on 08/28/2018 11:57:48 PM Referred By: Confirmed By:Justin Gavin
--- NOTE | 2018-08-28 23:58 | CPEKG ---
Test Reason : OPEN Blood Pressure : / mmHG Vent. Rate : 102 BPM Atrial Rate : 119 BPM P-R Int : 149 ms QRS Dur : 092 ms QT Int : 357 ms P-R-T Axes : 000 035 043 degrees QTc Int : 466 ms Atrial fibrillation Confirmed by Justin Gavin ([id number]) on 08/28/2018 11:57:48 PM Referred By: Confirmed By:Justin Gavin
== END 2018-08-25 18:58 | disposition home or self-care (01) ==
LOC: F2W 04:18
PROVIDERS: ADMIT Student in an Organized Health Care Education/Training Program; ATTEND Student in an Organized Health Care Education/Training Program
DX: I48.0 Paroxysmal atrial fibrillation (principal); R79.89 Other specified abnormal findings of blood chemistry; Z79.82 Long term (current) use of aspirin; F41.9 Anxiety disorder, unspecified; I10 Essential (primary) hypertension
CPT/HCPCS: 84481-90; 84484-PO; 96365; 96366; G0378